=== PATIENT | female | born 1965 | race Two or more races ===

== ENCOUNTER 2024-05-27 07:25 | Day surgery (SDC) | payer BC, SELFPAY ==
[2024-05-21 14:38] VITALS: BMI 26.5
[2024-05-21 18:06] LABS: Alanine Aminotransferase 18 U/L (10-49); Albumin, Serum 4.8 gm/dL (3.5-5.0); Albumin/Globulin Ratio 2.3 (1.2-2.2); Alkaline Phosphatase 78 U/L (46-116); Anion Gap 9 (7-16); Aspartate Amino Transferase < 8 U/L (0-34); BUN/Creatinine Ratio 20 Ratio (12-20); Bilirubin,Total 0.3 mg/dL (0.3-1.2); Blood Urea Nitrogen 16 mg/dL (9-23); Calcium 9.6 mg/dL (8.3-10.6); Calcium (Corrected) 9.6 mg/dL (8.5-10.1); Carbon Dioxide 28.1 mMol/L (20.0-31.0); Chloride 104 mMol/L (98-107); Creatinine (Component) 0.8 mg/dL (0.6-1.3); Estimated Creatinine Clearance 69.9 mL/min (>60); Globulin 2.1 gm/dL (2.3-3.5); Glucose 84 mg/dL (74-106); Osmolality,Calculated 281 (275-295); Sodium 141 mMol/L (136-145); Total Protein 6.9 gm/dL (5.7-8.2); eGFR > 60 See Note
--- NOTE | 2024-05-26 14:19 | SUR.PREOP ---
Message left with Pt's ride, Krys to bring pt at 0730 tomorrow for surgery. Pt didn't answer the phone.
[2024-05-27] VITALS (10 sets, daily range): BP systolic 106–159; BP diastolic 54–84; PULSE 55–89; RESP 15–20; TEMP 36.1–36.5; O2SAT 93–99; BMI 26.9
[2024-05-27] MEDS: RINGERS LACTATED 1000 ML 1,000 ML 20 ML IV (08:12)
--- NOTE | 2024-05-27 12:29 | SUR.PHASEI ---
pt arrived to PACU via gurney with oral airway present, breathing unlabored, dressing to left ear clean, dry, and intact, report from Nestor CHANEL, Reanna POLLARD, and Dr Fuentes.
--- NOTE | 2024-05-27 12:48 | SUR.PHASEI ---
1248: Report received from Negin Maloney RN. Nurse to resume care. Pt. has oral airway in place, vitals stable, breathing unlabored, no signs of distress, dressing to left ear CDI, no active bleed noted.
--- NOTE | 2024-05-27 12:55 | ESOP_ITS ---
Date of Procedure 05/27/24 Pre Op Diagnosis Left chronic mastoiditis with TM perforation and conductive hearing loss Post Op Diagnosis Left chronic mastoiditis with TM perforation and conductive hearing loss Procedure Left canal wall up tympanomastoidectomy using temporalis fascia with middle ear exploration and facial nerve monitoring Findings Anterior marginal perforation of the left tympanic membrane measuring approximately 4 x 3 mm in size. There is purulent drainage in the ear canal. The ossicular chain was intact and mobile. The tympanic membrane was thickened. Mastoid showed chronic sclerotic changes with inflammatory changes of the mucosa as well. Chorda tympani nerve and facial nerve were in their normal positions and preserved. Procedure Description Indications: This is a 58-year-old female with chronic draining ear and perforation is as described above surgical risks including bleeding infection hearing loss tinnitus dizziness and potential need for further surgery as well as facial nerve paralysis were discussed with her and she wished to proceed. Anticipated outcomes were discussed as well. Primary goal of the surgery is to resolve the infection. Patient was marked and shaved in the preoperative setting then transferred to the operative suite where she was anesthetized intubated. Monitoring electrodes were then placed in usual fashion for the left ear. Patient was then sterilely prepped and draped and timeout performed. Postauricular area as well as the external canal were injected with 1% lidocaine with 1 100,000 Nathaniel epinephrine. Less than 5 cc total used. Ear canal was irrigated with warm saline solution and suction. The perforation was barely visible due to a large anterior canal wall bulge. This required removal at the onset. Lateral and medial skin flaps were developed to expose the bone and this was drilled down with a #2 huan tipped bur irrigating while drilling. Once adequate visualization was obtained the margins of the perforation were prepped using 1/3 mm hook and cup biting forceps. The anterior canal wall skin was roughened up as well with the joint knife to improve adhesion of the graft. Posterior tympanomeatal flap was then developed and the eardrum turned forward. The tympanic membrane was thickened and was elevated off of the long process of the incus. This allowed the the graft to be tucked between the process and the original tympanic membrane. Posterior vascular strip was developed as well and elevated. Postauricular incision and palva flap were then created and temporalis fascia harvested for grafting purposes later. The graft was pressed and dried. Self-retaining retractors were used to hold the ear forward. Standard canal wall up mastoidectomy was then performed with a #6 and #4 cutting burs. The bone was very sclerotic with diseased air cells present. Dissection was carried up to the tegmen and down into the mastoid tip. Posterior canal wall was thinned. The attic region was visualized and horizontal canal identified. Once horizontal canal was identified the facial nerve was identified and confirmed with the nerve monitor. No further drilling was then performed over the nerve. The attic region was opened up further with a #4 cutting bur until the body of the incus was visualized and confirmed by gentle palpation. There were no signs of a cholesteatoma present. The ear was irrigated with warm saline solution and suction. The temporalis fascia was then brought in an underlay fashion and then pulled through the perforation anteriorly. The middle ear was packed with Surgifoam some dry some dipped in Ciprodex. The graft was then draped onto the anterior canal wall on top of the Surgifoam. The posterior portion of the middle ear was then filled with the Surgifoam as well. The graft was draped on the posterior canal wall and the posterior tympanomeatal flap returned to its normal position. The anterior canal wall flaps were returned back to their normal position as well. More Surgifoam dipped in Ciprodex was then packed in the medial portion of the canal. Postauricular incision was closed in a multilayer fashion with 4-0 Vicryl. The skin was closed with Dermabond. The external canal meatus was packed with cotton ball coated with antibiotic ointment. Monitoring electrodes were removed the patient was awakened and taken to the recovery room in stable condition. Sterile [place] dressing was applied as well. Anesthesia GETA Pathology / specimen None Estimated Blood Loss 15 Surgeon Vance Goodman DO Surgical Staff Operation Date: 05/27/24 09:45 Case Staff Anesthesiologist: Kash Fuentes
[2024-05-27] MEDS: METOCLOPRAMIDE INJ 5 MG/ML VIAL 2 ML 10 MG IVP (13:47)
--- NOTE | 2024-05-27 13:57 | SUR.PHASEII ---
1357: Pt. AAOx4, vitals stable, breathing unlabored, no complaint of pain or nausea, dressing to left ear CDI, no active bleed noted, pt. tolerated sips of water well, pt. ambulated to wheelchair with steady gait and no assist, no complications. Gave discharge instructions to the pt. and her ride using scale mechanic Riz[place], both verbalized understanding and had no further questions. Pt. left with all personal belongings.
== END 2024-05-27 13:57 | disposition home or self-care (01) ==
PROVIDERS: Anesthesiology; PCP Physician Assistant; Referring Provider Otolaryngology; Visit Provider Otolaryngology
PROC: (CPT 69641; principal; 2024-05-27 09:30)
DX: H70.12 Chronic mastoiditis, left ear (principal); H72.92 Unspecified perforation of tympanic membrane, left ear; H90.0 Conductive hearing loss, bilateral
CPT/HCPCS: 69641; 36415; 80053; A4217; A4649; J0171; J0690; J1100; J2371; J2405; J2704; J2765; J3010; J3473; J3490; J7040; J7120; A9270